=== PATIENT | female | born 1985 | race Caucasian/White ===

== ENCOUNTER 2020-08-18 12:02 | Emergency (ER) | payer BC, OTHER ==
[2020-08-18 12:31] VITALS: TEMP 97.6; O2SAT 100
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
[2020-08-18 12:56] VITALS: BP 128/88
== END 2020-08-18 12:56 | disposition home or self-care (01) ==
LOC: ER 12:02
DX: S13.4XXA Sprain of ligaments of cervical spine, initial encounter (principal); R51.9 Headache, unspecified; F17.200 Nicotine dependence, unspecified, uncomplicated; V49.9XXA Car occupant (driver) (passenger) injured in unspecified traffic accident, initial encounter; Y92.410 Unspecified street and highway as the place of occurrence of the external cause

== ENCOUNTER → 2020-11-25 | Outpatient (CLI) | payer OTHER | LOC: YCFC.O 14:56 | PROVIDERS: ATTEND Nurse Practitioner Family | DX: Z20.828 Contact with and (suspected) exposure to other viral communicable diseases (principal) ==